=== PATIENT | male | born 1970 | race Two or more races ===

== ENCOUNTER 2017-06-02 12:55 | Inpatient (IN) | payer OTHER ==
[2017-06-02 13:48] VITALS: BMI 25.4
--- NOTE | 2017-06-02 14:18 | HP ---
COWS - Scale Resting Pulse: 1= [place] 81-100 Sweatin= Chills/Flushing Restless Observation: 1= Difficult to Sit Still Pupil Size: 0= Normal to Room Light Bone or Joint Aches: 1= Mild Discomfort Runny Nose/ Eye Tearin= Runny Nose/Eyes GI Upset > 30mins: 2= Nausea/Diarrhea Tremor Observation: 2= Slight Tremor Visible Yawning Observation: 1= 1-2x During Session Anxiety or Irritability: 1=Feels Anxious/Irritable Goose Flesh Skin: 0=Smooth Skin COWS Score: 12 CIWA Score - CIWA Score Nausea/Vomitin-Mild Nausea/No Vomiting Muscle Tremors: 4-Moderate,w/Arms Extend Anxiety: 4-Mod. Anxious/Guarded Agitation: 1-Slight > Activity Paroxysmal Sweats: 1-Minimal Palms Moist Orientation: 2-Disoriented Date<2 days Tacttile Disturbances: 0-None Auditory Disturbances: 1-Very Mild Visual Disturbances: 1-Very Mild Sensitivity Headache: 2-Mild CIWA-Ar Total Score: 17 Admission ROS S - HPI Chief Complaint: I can't stop by myself, I get too sick so I just start to use again - I need a beer just to get up Allergies/Adverse Reactions: Allergies Allergy/AdvReac Type Severity Reaction Status Date / Time lisinopril Allergy Severe Swelling Verified 11/03/14 17:41 History of Present Illness: 47 yo gentleman here for detox from alcohol and heroin. Was last here in 2016, was ok, then relapsed - was in retirement for a year, came out a few months ago and relapsed. Exam Limitations: Clinical Condition - Ebola screening Have you traveled outside of the country in the last 21 days: No (N) Have you had contact with anyone from an Ebola affected area: No Have you been sick,other than usual withdrawal symptoms: No Do you have a fever: No - Review of Systems Constitutional: Loss of Appetite, Night Sweats, Changes in sleep EENT: reports: Blurred Vision, Nose Congestion Respiratory: reports: No Symptoms reported Cardiac: reports: No Symptoms Reported GI: reports: Nausea, Poor Appetite, Indigestion : reports: Frequency Musculoskeletal: reports: Back Pain, Muscle Pain Integumentary: reports: No Symptoms Reported Neuro: reports: Headache, Tremors Endocrine: reports: No Symptoms Reported Hematology: reports: No Symptoms Reported Psychiatric: reports: Judgement Intact, Mood/Affect Appropiate, Anxious Other Systems: Reviewed and Negative Patient History - Patient Medical History Hx Anemia: No Hx Asthma: No Hx Chronic Obstructive Pulmonary Disease (COPD): No Hx Cancer: No Hx Cardiac Disorders: No Hx Congestive Heart Failure: No Hx Hypertension: No Hx Hypercholesterolemia: No Hx Pacemaker: No HX Cerebrovascular Accident: No Hx Seizures: Yes (last time 2000) Hx Dementia: No Hx Diabetes: Yes (Denies any problems currently- was on meds and Insulin in past ) Hx Gastrointestinal Disorders: No Hx Liver Disease: No Hx Genitourinary Disorders: No Hx Sexually Transmitted Disorders: Yes (Hx of Chlamydia- Had [place]) Hx Renal Disease (ESRD): No Hx Thyroid Disease: No Hx Human Immunodeficiency Virus (HIV): No Hx Hepatitis C: No Hx Depression: Yes Hx Suicide Attempt: Yes () Hx Bipolar Disorder: Yes Hx Schizophrenia: Yes (hears voices, hospitalized 2010) - Patient Surgical History Past Surgical History: Yes Hx Neurologic Surgery: No Hx Cataract Extraction: No Hx Cardiac Surgery: No Hx Lung Surgery: No Hx Breast Surgery: No Hx Breast Biopsy: No Hx Abdominal Surgery: No Hx Appendectomy: Yes (at age of 17 years) Hx Cholecystectomy: No Hx Genitourinary Surgery: No Hx Section: No Hx Orthopedic Surgery: No Anesthesia Reaction: No - PPD History Previous Implant?: Yes Documented Results: Negative w/proof Implanted On Prior [facility] Admission?: Yes Date: 09/07/15 PPD to be Administered?: Yes - Reproductive History Patient is a Female of Child Bearing Age (11 -55 yrs old): No (male) - Smoking Cessation Smoking history: Current every day smoker Have you smoked in the past 12 months: Yes Aproximately how many cigarettes per day: 20 Cigars Per Day: 0 Hx Chewing Tobacco Use: No Initiated information on smoking cessation: Yes 'Breaking Loose' booklet given: 06/02/17 - Substance & Tx. History Hx Alcohol Use: Yes Hx Substance Use: Yes Substance Use Type: Alcohol, Cocaine, Heroin Hx Substance Use Treatment: Yes (detox, rehab, suboxone) - Substances Abused alcohol Route: Oral Frequency: Daily Amount used: twelve 24 oz beer;, 1/5 vodka Age of first use: 16 Date of Last Use: 06/02/17 heroin Route: Inhalation Frequency: Daily Amount used: 8 bags Age of first use: 32 Date of Last Use: 06/02/17 cocaine Route: Inhalation Frequency: 1-2 times per week Amount used: 6 bags Age of first use: 32 Date of Last Use: 06/01/17 Family Disease History - Family Disease History Family Disease History: Diabetes: Mother (,), Other: Father (alcohol, ,htn), Sister (two living - htn dm), Son (one - living ), Daughter (one - living) Admission Physical Exam [facility] - Vital Signs Vital Signs: Vital Signs - 24 hr 06/02/17 13:45 Temperature 97.6 F Pulse Rate 90 Respiratory 18 Rate Blood Pressure 131/71 - Physical General Appearance: Yes: Nourished, Appropriately Dressed, Mild Distress HEENTM: Yes: Hearing grossly Normal, Normal ENT Inspection, Normocephalic, Normal Voice, Nasal Congestion Respiratory: Yes: Normal Breath Sounds, No Respiratory Distress Neck: Yes: No masses,lesions,Nodules, Supple Breast: Yes: Breast Exam Deferred Cardiology: Yes: Regular Rhythm, Regular Rate Abdominal: Yes: Non Tender, Flat Genitourinary: Yes: Frequency Musculoskeletal: Yes: full range of Motion, Gait Steady Extremities: Yes: Normal Inspection, Non-Tender Neurological: Yes: Fully Oriented, Alert Integumentary: Yes: Normal Color, Warm Lymphatic: Yes: Within Normal Limits - Diagnostic (1) Alcohol dependence with uncomplicated withdrawal Current Visit: Yes Status: Chronic (2) Opioid dependence with withdrawal Current Visit: Yes Status: Chronic (3) Nicotine dependence Current Visit: Yes Status: Chronic Qualifiers: Nicotine product type: cigarettes (4) History of seizure Current Visit: Yes Status: Chronic Comment: alcohol related (5) Diabetes mellitus treated with oral medication Current Visit: Yes Status: Acute (6) Cocaine dependence Current Visit: Yes Status: Chronic Qualifiers: Substance use status: uncomplicated Qualified Code(s): F14.20 - Cocaine dependence, uncomplicated Cleared for Admission [facility] - Detox or Rehab [facility] Level of Care: Medically Managed Detox Regimen/Protocol: Methadone/Librium [facility] Breath Alcohol Content Breath Alcohol Content: 324 Urine Drug Screen - Results Drug Screen Negative: No Urine Drug Screen Results: FRANCES-Cocaine, OPI-Opiates
[2017-06-02] MEDS ORDERED: MENTHOL/PHENOL 1 EACH UD MM PRN (14:24)
[2017-06-02] MEDS ORDERED: MAGNESIUM HYDROX 2400MG/30ML ORAL SUSPENSION 30 ML CUP PO PRN (14:24)
[2017-06-02] MEDS ORDERED: LOPERAMIDE HCL 2 MG CAPSULE PO PRN (14:24)
[2017-06-02] MEDS ORDERED: NICOTINE POLACRILEX 4 MG GUM BC PRN (14:24)
[2017-06-02] MEDS ORDERED: guaiFENesin/D-METHORPHAN HB 10 ML UNIT-DOSE CUPS PO PRN (14:24)
[2017-06-02] MEDS ORDERED: chlordiazePOXIDE HCL 25 MG CAPSULE PO PRN (14:24)
[2017-06-02] MEDS ORDERED: MAG HYDROX/AL HYDROX/SIMETH 30 ML UNIT-DOSE CUP PO PRN (14:24)
[2017-06-02] MEDS ORDERED: P-EPHED 60MG/TRIPROLIDI 2.5MG TABLET PO PRN (14:24)
[2017-06-02] MEDS ORDERED: MAGNESIUM CITRATE 300 ML BOTTLE PO PRN (14:24)
[2017-06-02] MEDS ORDERED: COLLOIDAL OATMEAL 1 BAR EACH TP PRN (14:26)
[2017-06-02] MEDS ORDERED: chlordiazePOXIDE HCL 25 MG CAPSULE PO ONE (16:00)
[2017-06-02] MEDS ORDERED: METHADONE HCL 10 MG TABLET (FOR DETOX USE ONLY) PO ONE ×2 (16:15→23:00)
[2017-06-02] MEDS: IBUPROFEN 400 MG TABLET (FP) PO PRN (18:28)
[2017-06-02] MEDS: chlordiazePOXIDE HCL 25 MG CAPSULE PO SCH ×2 (18:29→22:54)
[2017-06-02] MEDS: metFORMIN HCL 500 MG TABLET (FP) PO SCH (18:30)
[2017-06-02] MEDS ORDERED: METHADONE HCL 10 MG TABLET (FOR DETOX USE ONLY) ONE (18:34)
[2017-06-02] MEDS ORDERED: MELATONIN 5 MG TABLETS PO PRN (22:00)
[2017-06-02] MEDS: THIAMINE HCL 100 MG TABLET (FP) PO SCH (22:53)
[2017-06-02] MEDS: TOLNAFTATE 1% CREAM 15 GM TUBE TP SCH (22:57)
[2017-06-03] MEDS: chlordiazePOXIDE HCL 25 MG CAPSULE PO SCH ×4 (05:27→22:41)
[2017-06-03] MEDS: IBUPROFEN 400 MG TABLET (FP) PO PRN (05:28)
[2017-06-03] MEDS: metFORMIN HCL 500 MG TABLET (FP) PO SCH ×2 (07:00→17:53)
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
[2017-06-03 09:02] LABS: URINE APPEARANCE CLEAR; URINE BILIRUBIN NEGATIVE (<2.0 mg/dL); URINE BLOOD NEGATIVE (NEGATIVE); URINE COLOR STRAW; URINE GLUCOSE (UA) NEGATIVE (NEGATIVE); URINE KETONE NEGATIVE (NEGATIVE); URINE LEUK ESTERASE NEGATIVE (NEGATIVE); URINE NITRITE NEGATIVE (NEGATIVE); URINE PROTEIN NEGATIVE (NEGATIVE); URINE UROBILINOGEN NEGATIVE mg/dL (0.2-1.0)
[2017-06-03] MEDS ORDERED: METHADONE HCL 10 MG TABLET (FOR DETOX USE ONLY) PO SCH (10:00)
[2017-06-03] MEDS: PRENATAL VITAMINS W/ FOLIC ACID TABLET (FP) PO SCH (10:21)
[2017-06-03] MEDS: TOLNAFTATE 1% CREAM 15 GM TUBE TP SCH ×2 (10:22→22:42)
--- NOTE | 2017-06-03 10:46 | EKG ---
Test Reason : Blood Pressure : / mmHG Vent. Rate : 097 BPM Atrial Rate : 097 BPM P-R Int : 152 ms QRS Dur : 098 ms QT Int : 346 ms P-R-T Axes : 058 061 022 degrees QTc Int : 439 ms NORMAL SINUS RHYTHM NONSPECIFIC T WAVE ABNORMALITY ABNORMAL ECG NO PREVIOUS ECGS AVAILABLE Confirmed by JOYCE ESPANA, KIANNA ([id number]) on 06/03/2017 10:46:34 AM Referred By: Confirmed By:KIANNA COOK MD
[2017-06-03 11:17] LABS: HEMATOCRIT 39.7 % (35.4-49); HEMOGLOBIN 13.1 GM/dL (11.7-16.9); MCH 27.7 pg (25.7-33.7); MCHC 33.1 g/dl (32.0-35.9); MEAN CELL VOLUME 83.8 fl (80-96); MEAN PLT VOLUME 7.2 fl (7.5-11.1); PLATELET COUNT 310 K/MM3 (134-434); RBC 4.74 M/mm3 (4.00-5.60); RDW 14.3 % (11.9-15.9); WHITE BLOOD COUNT 6.8 K/mm3 (4.0-10.0)
[2017-06-03] MEDS ORDERED: LIDOCAINE VISCOUS 2% ORAL/TOP 20 ML UNIT-DOSE CUP MM PRN (11:18)
[2017-06-03 11:30] LABS: ALBUMIN 3.4 g/dl (3.4-5.0); ANION GAP 1 (8-16); BLOOD UREA NITROGEN 18 mg/dL (7-18); CALCIUM 8.3 mg/dL (8.5-10.1); CHLORIDE 107 mmol/L (98-107); CO2 31 mmol/L (21-32); GLUCOSE,RANDOM 119 mg/dL (74-106); POTASSIUM 4.3 mmol/L (3.5-5.1); SGOT/AST 27 U/L (15-37); SGPT/ALT 31 U/L (12-78); SODIUM 139 mmol/L (136-145)
[2017-06-03 11:33] LABS: ALK PHOS 93 U/L (45-117); BILIRUBIN,TOTAL 0.4 mg/dL (0.2-1.0); TOT PROT 6.9 g/dl (6.4-8.2)
[2017-06-03] MEDS: SERTRALINE HCL 50 MG TABLET (FP) PO SCH (11:57)
[2017-06-03] MEDS: NAPROXEN 375 MG TABLET (FP) PO SCH ×2 (13:29→22:43)
[2017-06-03] MEDS: ARIPiprazole 30 MG TABLET PO SCH (13:30)
--- NOTE | 2017-06-03 15:27 | PN ---
[facility] CIWA - CIWA Score Nausea/Vomitin-No Nausea/No Vomiting Muscle Tremors: 3 Anxiety: 4-Mod. Anxious/Guarded Agitation: 4-Moderately Restless Paroxysmal Sweats: No Perspiration Orientation: 0-Oriented Tacttile Disturbances: 0-None Auditory Disturbances: 1-Very Mild Visual Disturbances: 2-Mild Sensitivity Headache: 3-Moderate CIWA-Ar Total Score: 17 [facility] COWS - Scale Resting Pulse: 1= [place] 81-100 Sweatin= No chills or Flushing Restless Observation: 1= Difficult to Sit Still Pupil Size: 0= Normal to Room Light Bone or Joint Aches: 2= Severe Diffuse Aches Runny Nose/ Eye Tearin= Runny Nose/Eyes GI Upset > 30mins: 0= None Tremor Observation of Outstretched Hands: 2= Slight Tremor Visible Yawning Observation: 1= 1-2x During Session Anxiety or Irritability: 2=Irritable/Anxious Goose Flesh Skin: 3=Piloerection COWS Score: 14 [facility] Progress Note (SOAP) Subjective: Fatigue, Tremors, H/A, Anxious. Patient reports toothache on right side of upper mouth, which he believes to be due to untreated dental cavity. Patient notes that surrounding area is painful. Objective: PATIENT A & O X 3, OBSERVED AMBULATING ON UNIT. NO ACUTE DISTRESS. 06/03/17 15:24 Vital Signs Temperature 97.8 F 06/03/17 14:24 Pulse Rate 90 06/03/17 14:30 Respiratory Rate 18 06/03/17 14:30 Blood Pressure 129/76 06/03/17 14:24 O2 Sat by Pulse Oximetry (%) Laboratory Tests 06/02/17 06/03/17 06/03/17 18:25 08:00 08:00 WBC 6.8 RBC 4.74 Hgb 13.1 Hct 39.7 MCV 83.8 MCH 27.7 MCHC 33.1 RDW 14.3 Plt Count 310 D MPV 7.2 L Sodium 139 Potassium 4.3 Chloride 107 Carbon Dioxide 31 Anion Gap 1 L BUN 18 D Creatinine 1.0 D Creat Clearance w eGFR > 60 POC Glucometer 166 Random Glucose 119 H D Calcium 8.3 L Total Bilirubin 0.4 AST 27 D ALT 31 Alkaline Phosphatase 93 Total Protein 6.9 Albumin 3.4 Urine Color Urine Appearance Urine pH Ur Specific [place] Urine Protein Urine Glucose (UA) Urine Ketones Urine Blood Urine Nitrite Urine Bilirubin Urine Urobilinogen Ur Leukocyte Esterase RPR Titer 06/03/17 06/03/17 08:00 08:51 WBC RBC Hgb Hct MCV MCH MCHC RDW Plt Count MPV Sodium Potassium Chloride Carbon Dioxide Anion Gap BUN Creatinine Creat Clearance w eGFR POC Glucometer Random Glucose Calcium Total Bilirubin AST ALT Alkaline Phosphatase Total Protein Albumin Urine Color Straw Urine Appearance Clear Urine pH 5.0 Ur Specific [place] 1.004 Urine Protein Negative Urine Glucose (UA) Negative Urine Ketones Negative Urine Blood Negative Urine Nitrite Negative Urine Bilirubin Negative Urine Urobilinogen Negative Ur Leukocyte Esterase Negative RPR Titer Nonreactive LABS NOTED. Assessment: 06/03/17 15:25 WITHDRAWAL SYMPTOMS. Plan: CONTINUE DETOX. AUGMENTIN, BID FOR DENTAL INFECTION (PROPHYLAXIS). NAPROXEN BID, VISOCUS LIDOCAINE SWISH/SPIT FOR DENTAL PAIN. PATIENT ADVISED TO FOLLOW-UP WITH DENTIST AT '[facility] ([place], [place] AFTER DISCHARGE FROM DETOX FOR FURTHER EXAMINATION OF AFFECTED DENTAL AREA.
[2017-06-03] MEDS: AMOX TR/POT CLAV 875MG/125MG TABLETS (FP) PO SCH (17:53)
[2017-06-03] MEDS: hydrOXYzine PAMOATE 25 MG CAPSULE (FP) PO PRN (19:41)
[2017-06-03] MEDS: ACETAMINOPHEN 325 MG TABLET (FP) PO PRN (19:42)
[2017-06-03] MEDS: THIAMINE HCL 100 MG TABLET (FP) PO SCH (22:41)
[2017-06-03] MEDS: traZODone HCL 50 MG TABLET (FP) PO SCH (22:43)
[2017-06-04] MEDS: chlordiazePOXIDE HCL 25 MG CAPSULE PO SCH ×2 (06:07→10:28)
[2017-06-04] MEDS: ACETAMINOPHEN 325 MG TABLET (FP) PO PRN (06:09)
[2017-06-04] MEDS: AMOX TR/POT CLAV 875MG/125MG TABLETS (FP) PO SCH ×2 (07:31→17:19)
[2017-06-04] MEDS: metFORMIN HCL 500 MG TABLET (FP) PO SCH ×2 (07:31→17:19)
[2017-06-04] MEDS: NAPROXEN 375 MG TABLET (FP) PO SCH ×2 (09:40→21:06)
[2017-06-04] MEDS: TOLNAFTATE 1% CREAM 15 GM TUBE TP SCH ×2 (10:25→22:27)
[2017-06-04] MEDS: ARIPiprazole 30 MG TABLET PO SCH (10:25)
[2017-06-04] MEDS: PRENATAL VITAMINS W/ FOLIC ACID TABLET (FP) PO SCH (10:25)
[2017-06-04] MEDS: METHADONE HCL 5 MG TABLET (FOR DETOX USE ONLY) PO SCH (10:25)
[2017-06-04] MEDS: SERTRALINE HCL 50 MG TABLET (FP) PO SCH (10:25)
--- NOTE | 2017-06-04 11:35 | PN ---
[facility] CIWA - CIWA Score Nausea/Vomitin-No Nausea/No Vomiting Muscle Tremors: 4-Moderate,w/Arms Extend Anxiety: 4-Mod. Anxious/Guarded Agitation: 4-Moderately Restless Paroxysmal Sweats: 1-Minimal Palms Moist Orientation: 0-Oriented Tacttile Disturbances: 0-None Auditory Disturbances: 0-None Visual Disturbances: 0-None Headache: 0-None Present CIWA-Ar Total Score: 13 [facility] COWS - Scale Resting Pulse: 0= [place] 80 or Below Sweatin= Chills/Flushing Restless Observation: 3= Extraneous Movement Pupil Size: 0= Normal to Room Light Bone or Joint Aches: 4=Acute Joint/Muscle Pain Runny Nose/ Eye Tearin= Nasal Congestion GI Upset > 30mins: 0= None Tremor Observation of Outstretched Hands: 1= Tremor [place], Not Seen Yawning Observation: 1= 1-2x During Session Anxiety or Irritability: 2=Irritable/Anxious Goose Flesh Skin: 0=Smooth Skin COWS Score: 13 [facility] Progress Note (SOAP) Subjective: ANXIETY,SWEATS, FATIGUE. Objective: 06/04/17 11:42 Vital Signs Temperature 97.2 F L 06/04/17 09:13 Pulse Rate 67 06/04/17 09:13 Respiratory Rate 18 06/04/17 09:13 Blood Pressure 107/66 06/04/17 09:13 O2 Sat by Pulse Oximetry (%) Laboratory Last Values WBC 6.8 K/mm3 (4.0-10.0) 06/03/17 08:00 RBC 4.74 M/mm3 (4.00-5.60) 06/03/17 08:00 Hgb 13.1 GM/dL (11.7-16.9) 06/03/17 08:00 Hct 39.7 % (35.4-49) 06/03/17 08:00 MCV 83.8 fl (80-96) 06/03/17 08:00 MCH 27.7 pg (25.7-33.7) 06/03/17 08:00 MCHC 33.1 g/dl (32.0-35.9) 06/03/17 08:00 RDW 14.3 % (11.9-15.9) 06/03/17 08:00 Plt Count 310 K/MM3 (134-434) D 06/03/17 08:00 MPV 7.2 fl (7.5-11.1) L 06/03/17 08:00 Sodium 139 mmol/L (136-145) 06/03/17 08:00 Potassium 4.3 mmol/L (3.5-5.1) 06/03/17 08:00 Chloride 107 mmol/L (98-107) 06/03/17 08:00 Carbon Dioxide 31 mmol/L (21-32) 06/03/17 08:00 Anion Gap 1 (8-16) L 06/03/17 08:00 BUN 18 mg/dL (7-18) D 06/03/17 08:00 Creatinine 1.0 mg/dL (0.7-1.3) D 06/03/17 08:00 Creat Clearance w eGFR > 60 (>60) 06/03/17 08:00 POC Glucometer 168 UNITS (80-120) 06/03/17 17:05 Random Glucose 119 mg/dL (74-106) H D 06/03/17 08:00 Calcium 8.3 mg/dL (8.5-10.1) L 06/03/17 08:00 Total Bilirubin 0.4 mg/dL (0.2-1.0) 06/03/17 08:00 AST 27 U/L (15-37) D 06/03/17 08:00 ALT 31 U/L (12-78) 06/03/17 08:00 Alkaline Phosphatase 93 U/L (45-117) 06/03/17 08:00 Total Protein 6.9 g/dl (6.4-8.2) 06/03/17 08:00 Albumin 3.4 g/dl (3.4-5.0) 06/03/17 08:00 Urine Color Straw 06/03/17 08:51 Urine Appearance Clear 06/03/17 08:51 Urine pH 5.0 (5.0-8.0) 06/03/17 08:51 Ur Specific [place] 1.004 (1.001-1.035) 06/03/17 08:51 Urine Protein Negative (NEGATIVE) 06/03/17 08:51 Urine Glucose (UA) Negative (NEGATIVE) 06/03/17 08:51 Urine Ketones Negative (NEGATIVE) 06/03/17 08:51 Urine Blood Negative (NEGATIVE) 06/03/17 08:51 Urine Nitrite Negative (NEGATIVE) 06/03/17 08:51 Urine Bilirubin Negative (<2.0 mg/dL) 06/03/17 08:51 Urine Urobilinogen Negative mg/dL (0.2-1.0) 06/03/17 08:51 Ur Leukocyte Esterase Negative (NEGATIVE) 06/03/17 08:51 RPR Titer Nonreactive (NONREACTIVE) 06/03/17 08:00 Assessment: 06/04/17 11:42 WITHDRAWAL SX Plan: CONTINUE DETOX
[2017-06-04] MEDS: chlordiazePOXIDE 5 MG CAPSULE PO SCH ×2 (17:19→22:28)
[2017-06-04] MEDS: hydrOXYzine PAMOATE 25 MG CAPSULE (FP) PO PRN (21:08)
[2017-06-04] MEDS: THIAMINE HCL 100 MG TABLET (FP) PO SCH (22:27)
[2017-06-04] MEDS: traZODone HCL 50 MG TABLET (FP) PO SCH (22:28)
[2017-06-05] MEDS: chlordiazePOXIDE 5 MG CAPSULE PO SCH ×2 (05:53→10:17)
[2017-06-05] MEDS: ACETAMINOPHEN 325 MG TABLET (FP) PO PRN (05:56)
[2017-06-05] MEDS: metFORMIN HCL 500 MG TABLET (FP) PO SCH ×2 (07:24→17:33)
[2017-06-05] MEDS: AMOX TR/POT CLAV 875MG/125MG TABLETS (FP) PO SCH ×2 (07:25→17:31)
[2017-06-05] MEDS: NAPROXEN 375 MG TABLET (FP) PO SCH ×2 (09:40→22:26)
[2017-06-05] MEDS: TOLNAFTATE 1% CREAM 15 GM TUBE TP SCH ×2 (10:16→22:36)
[2017-06-05] MEDS: ARIPiprazole 30 MG TABLET PO SCH (10:17)
[2017-06-05] MEDS: SERTRALINE HCL 50 MG TABLET (FP) PO SCH (10:17)
[2017-06-05] MEDS: METHADONE HCL 5 MG TABLET (FOR DETOX USE ONLY) PO SCH (10:17)
[2017-06-05] MEDS: PRENATAL VITAMINS W/ FOLIC ACID TABLET (FP) PO SCH (10:22)
--- NOTE | 2017-06-05 10:27 | PN ---
[facility] Progress Note (SOAP) Subjective: ALERT O X 3. LYING IN BED, AND IN NAD. Objective: 06/05/17 10:26 Vital Signs Temperature 98.1 F 06/05/17 09:15 Pulse Rate 92 H 06/05/17 09:15 Respiratory Rate 18 06/05/17 09:15 Blood Pressure 121/77 06/05/17 09:15 O2 Sat by Pulse Oximetry (%) Laboratory Last Values WBC 6.8 K/mm3 (4.0-10.0) 06/03/17 08:00 RBC 4.74 M/mm3 (4.00-5.60) 06/03/17 08:00 Hgb 13.1 GM/dL (11.7-16.9) 06/03/17 08:00 Hct 39.7 % (35.4-49) 06/03/17 08:00 MCV 83.8 fl (80-96) 06/03/17 08:00 MCH 27.7 pg (25.7-33.7) 06/03/17 08:00 MCHC 33.1 g/dl (32.0-35.9) 06/03/17 08:00 RDW 14.3 % (11.9-15.9) 06/03/17 08:00 Plt Count 310 K/MM3 (134-434) D 06/03/17 08:00 MPV 7.2 fl (7.5-11.1) L 06/03/17 08:00 Sodium 139 mmol/L (136-145) 06/03/17 08:00 Potassium 4.3 mmol/L (3.5-5.1) 06/03/17 08:00 Chloride 107 mmol/L (98-107) 06/03/17 08:00 Carbon Dioxide 31 mmol/L (21-32) 06/03/17 08:00 Anion Gap 1 (8-16) L 06/03/17 08:00 BUN 18 mg/dL (7-18) D 06/03/17 08:00 Creatinine 1.0 mg/dL (0.7-1.3) D 06/03/17 08:00 Creat Clearance w eGFR > 60 (>60) 06/03/17 08:00 POC Glucometer 108 UNITS (80-120) 06/05/17 05:54 Random Glucose 119 mg/dL (74-106) H D 06/03/17 08:00 Calcium 8.3 mg/dL (8.5-10.1) L 06/03/17 08:00 Total Bilirubin 0.4 mg/dL (0.2-1.0) 06/03/17 08:00 AST 27 U/L (15-37) D 06/03/17 08:00 ALT 31 U/L (12-78) 06/03/17 08:00 Alkaline Phosphatase 93 U/L (45-117) 06/03/17 08:00 Total Protein 6.9 g/dl (6.4-8.2) 06/03/17 08:00 Albumin 3.4 g/dl (3.4-5.0) 06/03/17 08:00 Urine Color Straw 06/03/17 08:51 Urine Appearance Clear 06/03/17 08:51 Urine pH 5.0 (5.0-8.0) 06/03/17 08:51 Ur Specific [place] 1.004 (1.001-1.035) 06/03/17 08:51 Urine Protein Negative (NEGATIVE) 06/03/17 08:51 Urine Glucose (UA) Negative (NEGATIVE) 06/03/17 08:51 Urine Ketones Negative (NEGATIVE) 06/03/17 08:51 Urine Blood Negative (NEGATIVE) 06/03/17 08:51 Urine Nitrite Negative (NEGATIVE) 06/03/17 08:51 Urine Bilirubin Negative (<2.0 mg/dL) 06/03/17 08:51 Urine Urobilinogen Negative mg/dL (0.2-1.0) 06/03/17 08:51 Ur Leukocyte Esterase Negative (NEGATIVE) 06/03/17 08:51 RPR Titer Nonreactive (NONREACTIVE) 06/03/17 08:00 Assessment: 06/05/17 10:27 WITHDRAWAL SX Plan: CONTINUE DETOX
[2017-06-05] MEDS: chlordiazePOXIDE HCL 10 MG CAPSULE PO SCH ×2 (17:31→22:24)
[2017-06-05] MEDS: traZODone HCL 50 MG TABLET (FP) PO SCH (22:24)
[2017-06-05] MEDS: THIAMINE HCL 100 MG TABLET (FP) PO SCH (22:24)
[2017-06-06] MEDS: chlordiazePOXIDE HCL 10 MG CAPSULE PO SCH ×2 (05:12→10:30)
[2017-06-06] MEDS: ACETAMINOPHEN 325 MG TABLET (FP) PO PRN (05:13)
[2017-06-06] MEDS: metFORMIN HCL 500 MG TABLET (FP) PO SCH (07:15)
[2017-06-06] MEDS: AMOX TR/POT CLAV 875MG/125MG TABLETS (FP) PO SCH (07:15)
--- NOTE | 2017-06-06 08:38 | PN ---
[facility] Progress Note (SOAP) Subjective: PT STATES HE HAS APPOINTMENT TODAY TO SEE THE ORAL SURGEON RE:TOOTHACHE/DECAY. PT WAS STARTED ON AUGMENTIN SINCE 06/03/17 AND WILL BE FOLLOWING UP WITH THAT TX TODAY. PT MET WITH HIS COUNSELOR AND AFTERCARE PLAN TO FOLLOW UP AT [facility] OPD EXPLAINED AND IN PLACE FOR PATIENT. PT REPORTS HE HAS OWN MEDS. Objective: 06/06/17 11:20 Vital Signs Temperature 97.2 F L 06/06/17 09:07 Pulse Rate 81 06/06/17 09:07 Respiratory Rate 16 06/06/17 09:07 Blood Pressure 116/74 06/06/17 09:07 O2 Sat by Pulse Oximetry (%) Laboratory Tests 06/02/17 06/03/17 06/03/17 18:25 08:00 08:00 WBC 6.8 RBC 4.74 Hgb 13.1 Hct 39.7 MCV 83.8 MCH 27.7 MCHC 33.1 RDW 14.3 Plt Count 310 D MPV 7.2 L Sodium 139 Potassium 4.3 Chloride 107 Carbon Dioxide 31 Anion Gap 1 L BUN 18 D Creatinine 1.0 D Creat Clearance w eGFR > 60 POC Glucometer 166 Random Glucose 119 H D Calcium 8.3 L Total Bilirubin 0.4 AST 27 D ALT 31 Alkaline Phosphatase 93 Total Protein 6.9 Albumin 3.4 Urine Color Urine Appearance Urine pH Ur Specific [place] Urine Protein Urine Glucose (UA) Urine Ketones Urine Blood Urine Nitrite Urine Bilirubin Urine Urobilinogen Ur Leukocyte Esterase RPR Titer 06/03/17 06/03/17 06/03/17 08:00 08:51 17:05 WBC RBC Hgb Hct MCV MCH MCHC RDW Plt Count MPV Sodium Potassium Chloride Carbon Dioxide Anion Gap BUN Creatinine Creat Clearance w eGFR POC Glucometer 168 Random Glucose Calcium Total Bilirubin AST ALT Alkaline Phosphatase Total Protein Albumin Urine Color Straw Urine Appearance Clear Urine pH 5.0 Ur Specific [place] 1.004 Urine Protein Negative Urine Glucose (UA) Negative Urine Ketones Negative Urine Blood Negative Urine Nitrite Negative Urine Bilirubin Negative Urine Urobilinogen Negative Ur Leukocyte Esterase Negative RPR Titer Nonreactive 06/04/17 06/05/17 16:22 05:54 WBC RBC Hgb Hct MCV MCH MCHC RDW Plt Count MPV Sodium Potassium Chloride Carbon Dioxide Anion Gap BUN Creatinine Creat Clearance w eGFR POC Glucometer 135 108 Random Glucose Calcium Total Bilirubin AST ALT Alkaline Phosphatase Total Protein Albumin Urine Color Urine Appearance Urine pH Ur Specific [place] Urine Protein Urine Glucose (UA) Urine Ketones Urine Blood Urine Nitrite Urine Bilirubin Urine Urobilinogen Ur Leukocyte Esterase RPR Titer Assessment: 06/06/17 11:20 MEDICALLY STABLE Plan: D/C PT TODAY. FOLLOW UP WITH PMD DR. BOOTH AT [place] FOR MEDICAL MANAGEMENT OF COMORBID CONDITIONS. FOLLOW UP FOR DENTAL SURGERY APPOINTMENT TODAY.
--- NOTE | 2017-06-06 08:39 | DS ---
[facility] Detox Discharge Summary Admission Date: 06/02/17 Discharge Date: 06/06/17 - History Present History: Alcohol Dependence, Cocaine Dependence Additional Comments: DETOX COMPLETED. PT REPORTS HE HAS DENTAL SURGERY APPOINTMENT TODAY RE:DENTAL DECAY/INFECTION. PT INSTRUCTED TO FOLLOW UP WITH PMD DR. BOOTH AT [facility] IN [place], [place] FOR MEDICAL MANAGEMENT OF HIS COMORBID CONDITIONS. Pertinent Past History: PLEASE SEE DX BELOW - Physical Exam Results Vital Signs: Vital Signs Temperature 97.7 F 06/06/17 06:08 Pulse Rate 96 H 06/06/17 06:08 Respiratory Rate 18 06/06/17 06:08 Blood Pressure 107/65 06/06/17 06:08 O2 Sat by Pulse Oximetry (%) Pertinent Admission Physical Exam Findings: WITHDRAWAL SX Laboratory Last Values WBC 6.8 K/mm3 (4.0-10.0) 06/03/17 08:00 RBC 4.74 M/mm3 (4.00-5.60) 06/03/17 08:00 Hgb 13.1 GM/dL (11.7-16.9) 06/03/17 08:00 Hct 39.7 % (35.4-49) 06/03/17 08:00 MCV 83.8 fl (80-96) 06/03/17 08:00 MCH 27.7 pg (25.7-33.7) 06/03/17 08:00 MCHC 33.1 g/dl (32.0-35.9) 06/03/17 08:00 RDW 14.3 % (11.9-15.9) 06/03/17 08:00 Plt Count 310 K/MM3 (134-434) D 06/03/17 08:00 MPV 7.2 fl (7.5-11.1) L 06/03/17 08:00 Sodium 139 mmol/L (136-145) 06/03/17 08:00 Potassium 4.3 mmol/L (3.5-5.1) 06/03/17 08:00 Chloride 107 mmol/L (98-107) 06/03/17 08:00 Carbon Dioxide 31 mmol/L (21-32) 06/03/17 08:00 Anion Gap 1 (8-16) L 06/03/17 08:00 BUN 18 mg/dL (7-18) D 06/03/17 08:00 Creatinine 1.0 mg/dL (0.7-1.3) D 06/03/17 08:00 Creat Clearance w eGFR > 60 (>60) 06/03/17 08:00 POC Glucometer 108 UNITS (80-120) 06/05/17 05:54 Random Glucose 119 mg/dL (74-106) H D 06/03/17 08:00 Calcium 8.3 mg/dL (8.5-10.1) L 06/03/17 08:00 Total Bilirubin 0.4 mg/dL (0.2-1.0) 06/03/17 08:00 AST 27 U/L (15-37) D 06/03/17 08:00 ALT 31 U/L (12-78) 06/03/17 08:00 Alkaline Phosphatase 93 U/L (45-117) 06/03/17 08:00 Total Protein 6.9 g/dl (6.4-8.2) 06/03/17 08:00 Albumin 3.4 g/dl (3.4-5.0) 06/03/17 08:00 Urine Color Straw 06/03/17 08:51 Urine Appearance Clear 06/03/17 08:51 Urine pH 5.0 (5.0-8.0) 06/03/17 08:51 Ur Specific [place] 1.004 (1.001-1.035) 06/03/17 08:51 Urine Protein Negative (NEGATIVE) 06/03/17 08:51 Urine Glucose (UA) Negative (NEGATIVE) 06/03/17 08:51 Urine Ketones Negative (NEGATIVE) 06/03/17 08:51 Urine Blood Negative (NEGATIVE) 06/03/17 08:51 Urine Nitrite Negative (NEGATIVE) 06/03/17 08:51 Urine Bilirubin Negative (<2.0 mg/dL) 06/03/17 08:51 Urine Urobilinogen Negative mg/dL (0.2-1.0) 06/03/17 08:51 Ur Leukocyte Esterase Negative (NEGATIVE) 06/03/17 08:51 RPR Titer Nonreactive (NONREACTIVE) 06/03/17 08:00 - Treatment Hospital Course: Detox Protocol Followed, Detoxed Safely, Responded well, Discharged Condition Good, Rehab Referral Accepted Patient has Accepted a Rehab Referral to: [facility] - Medication Discharge Medications: Ambulatory Orders Gabapentin [Neurontin -] 300 mg PO Q8H 06/02/17 Metformin HCl 500 mg PO BID 06/02/17 Aripiprazole [Abilify -] 30 mg PO DAILY #30 tablet 06/03/17 Sertraline HCl [Zoloft -] 50 mg PO DAILY #30 tablet 06/03/17 traZODone HCL [Desyrel -] 50 mg PO HS #30 tablet 06/03/17 Amox-Tr/K Cl [Augmentin 875-125mg Tablet -] 1 tab PO BID@0800,1730 #10 tablet - Diagnosis (1) Alcohol dependence with uncomplicated withdrawal Status: Acute (2) Cocaine dependence Status: Acute Qualifiers: Substance use status: uncomplicated Qualified Code(s): F14.20 - Cocaine dependence, uncomplicated (3) Diabetes mellitus treated with oral medication Status: Chronic (4) History of seizure Status: Suspected (5) Nicotine dependence Status: Acute Qualifiers: Nicotine product type: cigarettes Substance use status: in withdrawal Qualified Code(s): F17.213 - Nicotine dependence, cigarettes, with withdrawal (6) Hepatitis C Status: Chronic Qualifiers: Viral hepatitis chronicity: chronic (7) Infected dental carries Status: Acute - AMA Did Patient Leave Against Medical Advice: No
[2017-06-06 09:08] VITALS: BP 116/74; PULSE 81; TEMP 97.2
[2017-06-06] MEDS ORDERED: METHADONE HCL 10 MG TABLET (FOR DETOX USE ONLY) PO SCH (10:00)
[2017-06-06] MEDS: SERTRALINE HCL 50 MG TABLET (FP) PO SCH (10:30)
[2017-06-06] MEDS: TOLNAFTATE 1% CREAM 15 GM TUBE TP SCH (10:30)
[2017-06-06] MEDS: PRENATAL VITAMINS W/ FOLIC ACID TABLET (FP) PO SCH (10:30)
[2017-06-06] MEDS: NAPROXEN 375 MG TABLET (FP) PO SCH (10:30)
[2017-06-06] MEDS: ARIPiprazole 30 MG TABLET PO SCH (10:30)
[2017-06-07] MEDS ORDERED: METHADONE HCL 5 MG TABLET (FOR DETOX USE ONLY) PO SCH (06:00)
== END 2017-06-06 09:12 | disposition home or self-care (01) | DRG 774 ==
LOC: YASAS 12:55 → Y3N 16:41
PROVIDERS: ADMIT Internal Medicine; ATTEND Internal Medicine
PROC: HZ2ZZZZ Detoxification Services for Substance Abuse Treatment (ICD-10-PCS; principal; 2017-06-02)
DX: F10.230 Alcohol dependence with withdrawal, uncomplicated (principal); F14.20 Cocaine dependence, uncomplicated; F17.213 Nicotine dependence, cigarettes, with withdrawal; F90.9 Attention-deficit hyperactivity disorder, unspecified type; F43.10 Post-traumatic stress disorder, unspecified; F25.9 Schizoaffective disorder, unspecified; F20.0 Paranoid schizophrenia; F19.24 Other psychoactive substance dependence with psychoactive substance-induced mood disorder; F19.282 Other psychoactive substance dependence with psychoactive substance-induced sleep disorder; E11.9 Type 2 diabetes mellitus without complications; B18.2 Chronic viral hepatitis C; K02.9 Dental caries, unspecified; Z86.69 Personal history of other diseases of the nervous system and sense organs; Z79.84 Long term (current) use of oral hypoglycemic drugs; Z87.438 Personal history of other diseases of male genital organs; Z91.5 Personal history of self-harm
CPT/HCPCS: 36415; 80053; 81003; 82962; 85027; 86593; 93005; 93010